=== PATIENT | female | born 1995 | race African-American/Black ===

== ENCOUNTER 2017-06-09 17:52 | Emergency (ER) | payer OTHER ==
[~2017-06-09] VITALS: Ht 175.3 cm; Wt 83.9 kg
[~2017-06-09 17:52] MED LIST: FLUC150T PO; HYDR-2758 PO; LEVO500T59 PO; ONDA4TAB10 SL; TAMS0.4C97 PO
[2017-06-09 18:30] VITALS: BP 163/72
[2017-06-09 18:55] LABS: BILIRUBIN,URINE NEGATIVE (NEG); GLUCOSE,URINE NEGATIVE (NEG); NITRITE,URINE NEGATIVE (NEG); PH,URINE 5.5; PROTEIN,URINE 30 mg/dL (NEG-TRACE); UROBILINOGEN,URINE 0.2 mg/dL (0.2 mg/dL)
--- NOTE | 2017-06-09 19:01 | PHYS DOC ---
Past Medical History Past Medical History: Kidney Stone Past Surgical History: Other Additional Past Surgical Histo: KIDNEY STONE REMOVAL WITH STENT PLACEMENT Alcohol Use: None Drug Use: None Adult General Chief Complaint Chief Complaint: ABDOMINAL PAIN HPI HPI Patient is a 21 year old female with history of kidney stones who presents today with bilateral pelvic pain that began 2 weeks ago and has been going on intermittently. Patient denies any urgency frequency or dysuria. Denies any chance she is . She states she has an Implanon. Denies any unusual vaginal discharge or STD concerns. Review of Systems Review of Systems Constitutional: Denies fever or chills [] Eyes: Denies change in visual acuity, redness, or eye pain [] HENT: Denies nasal congestion or sore throat [] Respiratory: Denies cough or shortness of breath [] Cardiovascular: No additional information not addressed in HPI [] GI: Pelvic pain : Denies dysuria or hematuria [] Musculoskeletal: Denies back pain or joint pain [] Integument: Denies rash or skin lesions [] Neurologic: Denies headache, focal weakness or sensory changes [] Endocrine: Denies polyuria or polydipsia [] Current Medications Current Medications Current Medications Medications (Trade) Dose Ordered Sig/Kannan Start Time Stop Time Status Last Admin Dose Admin Azithromycin (Zithromax) 1,000 mg 1X ONCE 06/09/17 19:15 06/09/17 19:16 DC 06/09/17 19:09 1,000 MG Ceftriaxone Sodium (Rocephin Im) 250 mg 1X ONCE 06/09/17 19:15 06/09/17 19:16 DC 06/09/17 19:08 250 MG Metronidazole (Flagyl) 2,000 mg 1X ONCE 06/09/17 19:15 06/09/17 19:16 DC 06/09/17 19:09 2,000 MG Allergies Allergies Allergies Coded Allergies Type Severity Reaction Last Updated Verified No Known Drug Allergies 05/11/16 No Physical Exam Physical Exam Constitutional: Well developed, well nourished, no acute distress, non-toxic appearance. [] HENT: Normocephalic, atraumatic, bilateral external ears normal, oropharynx moist, no oral exudates, nose normal. [] Eyes: PERRLA, EOMI, conjunctiva normal, no discharge. [] Neck: Normal range of motion, no tenderness, supple, no stridor. [] Cardiovascular:Heart rate regular rhythm, no murmur [] Lungs & Thorax: Bilateral breath sounds clear to auscultation [] Abdomen: Bowel sounds normal, soft, no tenderness, no masses, no pulsatile masses. [] Pelvic exam External pelvic appears normal, cervix is closed, moderate CMT and exam. No adnexal tenderness. Small amount of brownish discharge in the vaginal vault. Skin: Warm, dry, no erythema, no rash. [] Back: No tenderness, no CVA tenderness. [] Extremities: No tenderness, no cyanosis, no clubbing, ROM intact, no edema. [] Neurologic: Alert and oriented X 3, normal motor function, normal sensory function, no focal deficits noted. [] Psychologic: Affect normal, judgement normal, mood normal. [] Current Patient Data Vital Signs Vital Signs Date Time Temp Pulse Resp B/P (MAP) Pulse Ox O2 Delivery O2 Flow Rate FiO2 06/09/17 18:30 98.4 70 16 163/72 (102) 98 Room Air 98.4 Lab Values Laboratory Tests Test 06/09/17 17:56 06/09/17 18:47 POC Urine HCG, Qualitative Hcg negative (Negative) Urine Collection Type Unknown Urine Color Yellow Urine Clarity Cloudy Urine pH 5.5 Urine Specific [place] 1.015 Urine Protein 30 mg/dL (NEG-TRACE) Urine Glucose (UA) Negative mg/dL (NEG) Urine Ketones (Stick) Negative mg/dL (NEG) Urine Blood Negative (NEG) Urine Nitrite Negative (NEG) Urine Bilirubin Negative (NEG) Urine Urobilinogen Dipstick 0.2 mg/dL (0.2 mg/dL) Urine Leukocyte Esterase Negative (NEG) Urine RBC 0 /HPF (0-2) Urine WBC 1-4 /HPF (0-4) Urine Squamous Epithelial Cells Mod /LPF Urine Transitional Epithelial Cells Few /LPF Urine Bacteria 0 /HPF (0-FEW) Urine Mucus Marked /LPF Microbiology 06/09/17 Wet Prep - Final, Complete EKG EKG [] Radiology/Procedures Radiology/Procedures [] Course & Med Decision Making Course & Med Decision Making Pertinent Labs and Imaging studies reviewed. (See chart for details) Patient is in the ED with complaints of pelvic pain intermittently for 2 weeks. She did have moderate CMT and exam. She was treated for pelvic inflammatory disease with azithromycin Flagyl and Rocephin. Negative urine hCG, urine negative for UTI. Wet prep positive for BV. Discharged with Flagyl. Educated on safe sex practices especially the need to use protection. Discharged with Ultram for pain. Follow-up with [facility] in the next 7 days. Amelia Disclaimer Brennanon Disclaimer This electronic medical record was generated, in whole or in part, using a voice recognition dictation system. Departure Departure Impression: Primary Impression: Pelvic inflammatory disease Additional Impression: Bacterial vaginosis Disposition: HOME, SELF-CARE Condition: STABLE Referrals: NO PCP (PCP) FABIO LOU MD Please follow in one week Patient Instructions: Bacterial Vaginosis, Pelvic Inflammatory Disease, Easy-to -Read Additional Instructions: You were seen for lower abdominal pain with a physical exam consistent with pelvic inflammatory disease. We treated you for this condition. You also tested positive for bacterial vaginosis, complete your antibiotics. Do not drink on this medication. Use protection at all times during sex. Follow-up with the provided [facility] in 1-2 weeks. Scripts Metronidazole (FLAGYL) 500 Mg Tablet 1 TAB PO BID, #10 TAB Prov: RYDER GLYNN APRN 06/09/17 Problem Qualifiers RYDER GLYNN [employer] Jun 09, 2017 19:01
[2017-06-09 19:02] LABS: BACTERIA,URINE 0 /HPF (0-FEW); RBC,URINE 0 /HPF (0-2); SQUAMOUS EPITHELIAL CELL,UR MOD /LPF
[2017-06-09] MEDS ORDERED: metroNIDAZOLE 500 MG TABLET PO ONE (19:15)
[2017-06-09] MEDS ORDERED: cefTRIAXone IM 250 MG VIAL IM ONE (19:15)
[2017-06-09] MEDS ORDERED: AZITHROMYCIN 250 MG TABLET. PO ONE (19:15)
[2017-06-09] MEDS ORDERED: METR500T PO (19:30)
== END 2017-06-09 19:36 | disposition home or self-care (01) ==
LOC: ER 17:52
DX: N76.0 Acute vaginitis (principal); N73.9 Female pelvic inflammatory disease, unspecified; B96.89 Other specified bacterial agents as the cause of diseases classified elsewhere
CPT/HCPCS: 81001; 81025; 87491; 87591; 96372; 99284; J0696; Q0111; Q0144

== ENCOUNTER 2017-09-01 11:05 | Emergency (ER) | payer OTHER ==
[~2017-09-01] VITALS: Ht 175.3 cm; Wt 83.9 kg
[~2017-09-01 11:05] MED LIST changes: +METR500T PO
[2017-09-01 11:17] VITALS: BP 125/65
[2017-09-01 11:49] LABS: BILIRUBIN,URINE NEGATIVE (NEG); GLUCOSE,URINE NEGATIVE (NEG); NITRITE,URINE NEGATIVE (NEG); PH,URINE 6.5; PROTEIN,URINE NEGATIVE (NEG-TRACE); UROBILINOGEN,URINE 0.2 mg/dL (0.2 mg/dL)
--- NOTE | 2017-09-01 11:51 | PHYS DOC ---
Past Medical History Past Medical History: Kidney Stone Past Surgical History: Other Additional Past Surgical Histo: KIDNEY STONE REMOVAL WITH STENT PLACEMENT Alcohol Use: None Drug Use: None Adult General Chief Complaint Chief Complaint: SEXUALLY TRANSMITTED DISEASE [facility] HPI Patient is a 22 year old female presents to emergency department stating that she had the Norplant implant placed in December. She states that she had her last normal menstrual period in June. She states that she's had a few positive test as well as a few negative test. Patient also states that she's been having some white vaginal discharge. She's been having urinary frequency urgency and pain with urination. Dominant pain or discomfort. She denies any spotting. Review of Systems Review of Systems Constitutional: Denies fever or chills [] Eyes: Denies change in visual acuity, redness, or eye pain [] HENT: Denies nasal congestion or sore throat [] Respiratory: Denies cough or shortness of breath [] Cardiovascular: No additional information not addressed in HPI [] GI: Denies abdominal pain, nausea, vomiting, bloody stools or diarrhea [] : dysuria and vaginal discharge denies hematuria [] Musculoskeletal: Denies back pain or joint pain [] Integument: Denies rash or skin lesions [] Neurologic: Denies headache, focal weakness or sensory changes [] Endocrine: Denies polyuria or polydipsia [] Current Medications Current Medications Current Medications Medications (Trade) Dose Ordered Sig/Kannan Start Time Stop Time Status Last Admin Dose Admin Azithromycin (Zithromax) 1,000 mg 1X ONCE 09/01/17 12:30 09/01/17 12:31 DC 09/01/17 12:19 1,000 MG Ceftriaxone Sodium (Rocephin Im) 250 mg 1X ONCE 09/01/17 12:30 09/01/17 12:31 DC 09/01/17 12:19 250 MG Metronidazole (Flagyl) 2,000 mg 1X ONCE 09/01/17 12:30 09/01/17 12:31 DC 09/01/17 12:18 2,000 MG Allergies Allergies Allergies Coded Allergies Type Severity Reaction Last Updated Verified No Known Drug Allergies 05/11/16 No Physical Exam Physical Exam Constitutional: Well developed, well nourished, no acute distress, non-toxic appearance. [] HENT: Normocephalic, atraumatic, bilateral external ears normal, oropharynx moist, no oral exudates, nose normal. [] Eyes: PERRLA, EOMI, conjunctiva normal, no discharge. [] Neck: Normal range of motion, no tenderness, supple, no stridor. [] Cardiovascular:Heart rate regular rhythm, no murmur [] Lungs & Thorax: Bilateral breath sounds clear to auscultation [] Skin: Warm, dry, no erythema, no rash. [] Extremities: No tenderness, no cyanosis, no clubbing, ROM intact, no edema. [] Neurologic: Alert and oriented X 3, normal motor function, normal sensory function, no focal deficits noted. [] Psychologic: Affect normal, judgement normal, mood normal. [] Vaginal exam with MARISOL Chandler at bedside. Speculum exam: patient with white discharge noted. Manual exam: patient with no CMT with left adnexal tenderness Current Patient Data Vital Signs Vital Signs Date Time Temp Pulse Resp B/P (MAP) Pulse Ox O2 Delivery O2 Flow Rate FiO2 09/01/17 11:17 97.7 67 14 125/65 (85) 100 Room Air 97.7 Lab Values Laboratory Tests Test 09/01/17 11:15 09/01/17 11:38 09/01/17 12:15 Urine Collection Type Void Urine Color Yellow Urine Clarity Clear Urine pH 6.5 Urine Specific [place] <=1.005 Urine Protein Negative mg/dL (NEG-TRACE) Urine Glucose (UA) Negative mg/dL (NEG) Urine Ketones (Stick) Negative mg/dL (NEG) Urine Blood Negative (NEG) Urine Nitrite Negative (NEG) Urine Bilirubin Negative (NEG) Urine Urobilinogen Dipstick 0.2 mg/dL (0.2 mg/dL) Urine Leukocyte Esterase Small (NEG) Urine RBC Occ /HPF (0-2) Urine WBC 5-10 /HPF (0-4) Urine Squamous Epithelial Cells Many /LPF Urine Bacteria Moderate /HPF (0-FEW) POC Urine HCG, Qualitative Hcg negative (Negative) Maternal Serum HCG Beta Subunit 1 mIU/mL (0-5) Microbiology 09/01/17 Wet Prep - Final, Complete EKG EKG [] Radiology/Procedures Radiology/Procedures [] Course & Med Decision Making Course & Med Decision Making Pertinent Labs and Imaging studies reviewed. (See chart for details) Urinalysis was positive for small amount of leukocyte Estrace. Patient had many bacteria noted. She'll be treated with Macrobid. Wet prep was negative. Patient has chosen to be treated for sexually transmitted infections. She will receive Rocephin, Flagyl and Zithromax. Patient's test both urine and quantitative was negative. Patient will be discharged home in stable condition with recommendations to follow-up with a primary care physician in the next 7- 10 days. Patient agrees with discharge instructions, treatment regimens and follow-up recommendations. Recommended that she drink plenty of fluids such as water and cranberry juice. Recommended that she avoid cranberry juice cocktail, carbonated beverages, citrus fruits, alcohol, caffeine as these are considered irritants to the bladder. Patient agrees with discharge instructions treatment regimens and follow-up recommendations. All questions and concerns been answered at patient's bedside. [] Dragon Disclaimer Dragon Disclaimer This electronic medical record was generated, in whole or in part, using a voice recognition dictation system. Departure Departure Impression: Primary Impression: Urinary tract infection Additional Impression: Concern about sexually transmitted disease in female without diagnosis Disposition: 01 HOME, SELF-CARE Condition: STABLE Referrals: JEFFERSON REA MD (PCP) Patient Instructions: Sexually Transmitted Disease, Urinary Tract Infection, [id number] Additional Instructions: Activity as tolerated. Drink plenty of fluids such as water and cranberry juice. Avoid cranberry juice cocktail, carbonated beverages, citrus fruits, caffeine, alcohol as these are considered irritants to the bladder. Refrain from sexual intercourse for the next 2 weeks. You will be notified of your cultures an approximately 2-3 days. Follow-up the primary care physician in the next 7-10 days. Return back to emergency prior signs symptoms of become worse. Scripts Nitrofurantoin Monohyd/M-Cryst (MACROBID 100 MG CAPSULE) 100 Mg Capsule 1 CAP PO BID, #14 CAP Prov: TANMAY CAMARENA APRN 09/01/17 Problem Qualifiers Primary Impression: Urinary tract infection Urinary tract infection type: site unspecified Hematuria presence: without hematuria Qualified Codes: N39.0 - Urinary tract infection, site not specified TANMAY CAMARENA APRN Sep 01, 2017 11:51
[2017-09-01 11:55] LABS: SQUAMOUS EPITHELIAL CELL,UR MANY /LPF
[2017-09-01 11:56] LABS: RBC,URINE OCC /HPF (0-2)
[2017-09-01 11:57] LABS: BACTERIA,URINE MODERATE /HPF (0-FEW)
[2017-09-01] MEDS ORDERED: cefTRIAXone IM 250 MG VIAL IM ONE (12:30)
[2017-09-01] MEDS ORDERED: AZITHROMYCIN 250 MG TABLET. PO ONE (12:30)
[2017-09-01] MEDS ORDERED: metroNIDAZOLE 500 MG TABLET PO ONE (12:30)
[2017-09-01] MEDS ORDERED: NITR100C62 PO (13:01)
== END 2017-09-01 13:18 | disposition home or self-care (01) ==
LOC: ER 11:05
DX: N39.0 Urinary tract infection, site not specified (principal); Z20.2 Contact with and (suspected) exposure to infections with a predominantly sexual mode of transmission; Z87.442 Personal history of urinary calculi
CPT/HCPCS: 81001; 81025; 84702; 87086; 96372; 99284; J0696; Q0111; Q0144; 87491; 87591

== ENCOUNTER 2017-11-30 15:02 | Emergency (ER) | payer OTHER ==
[2017-11-30 16:49] LABS: URINE HCG POC HCG NEGATIVE (Negative)
[2017-11-30 16:50] LABS: BILIRUBIN,URINE NEGATIVE (NEG); CLARITY,URINE CLEAR; COLOR,URINE YELLOW; GLUCOSE,URINE NEGATIVE (NEG); NITRITE,URINE NEGATIVE (NEG); PH,URINE 6.5; PROTEIN,URINE NEGATIVE (NEG-TRACE); UROBILINOGEN,URINE 0.2 mg/dL (0.2 mg/dL)
[2017-11-30 17:12] LABS: BACTERIA,URINE FEW /HPF (0-FEW); RBC,URINE 0 /HPF (0-2); SQUAMOUS EPITHELIAL CELL,UR FEW /LPF; WBC,URINE OCC /HPF (0-4)
[2017-11-30] MEDS: MAGNESIUM CITRATE 296 ML SOLUTION. PO (18:23)
[2017-11-30] MEDS: metroNIDAZOLE 500 MG TABLET PO (18:24)
[2017-11-30] MEDS: cefTRIAXone IM 250 MG VIAL IM (18:24)
[2017-11-30] MEDS: AZITHROMYCIN 250 MG TABLET. PO (18:24)
[2017-12-03 19:16] LABS: CHLAMYDIA PROBE Negative (Negative); GC PROBE Negative (Negative)
== END 2017-11-30 18:20 | disposition home or self-care (01) ==
LOC: ER 15:02
DX: K59.00 Constipation, unspecified (principal)
CPT/HCPCS: 74018; 81001; 81025; 87491; 87591; 96372; 99285-25; J0696; Q0111; Q0144

== ENCOUNTER 2018-09-09 22:09 | Emergency (ER) | payer OTHER ==
[~2018-09-09] VITALS: Ht 175.3 cm; Wt 83.9 kg
[~2018-09-09 22:09] MED LIST changes: +NITR100C62 PO; +POLY17PO29 PO
[2018-09-09 22:30] VITALS: BP 138/65
== END 2018-09-09 23:41 | disposition left against medical advice (07) ==
LOC: ER 22:09
DX: R11.2 Nausea with vomiting, unspecified (principal); R19.7 Diarrhea, unspecified; R05 Cough
CPT/HCPCS: 99281

== ENCOUNTER 2020-07-17 08:42 | Emergency (ER) | payer MEDICAID, OTHER ==
[~2020-07-17] VITALS: Ht 175.3 cm; Wt 90.9 kg
[~2020-07-17 08:42] MED LIST changes: -HYDR-2758 PO; +HYDR-2761 PO
[2020-07-17 09:00] VITALS: BP 130/75
[2020-07-17] MEDS ORDERED: cefTRIAXone IM 250 MG VIAL IM ONE (09:30)
[2020-07-17] MEDS ORDERED: AZITHROMYCIN 250 MG TABLET. PO ONE (09:30)
[2020-07-17 10:41] LABS: BILIRUBIN,URINE NEGATIVE (NEG); CLARITY,URINE CLOUDY; COLOR,URINE YELLOW; NITRITE,URINE NEGATIVE (NEG); PH,URINE 8.5 (<5.0-8.0); PROTEIN,URINE NEGATIVE (NEG-TRACE)
[2020-07-17 11:06] LABS: AMORPHOUS SEDIMENT,UR PRESENT /HPF; BACTERIA,URINE 0 /HPF (0-FEW); RBC,URINE 0 /HPF (0-2); WBC,URINE 0 /HPF (0-4)
--- NOTE | 2020-07-17 11:20 | PHYS DOC ---
Past Medical History Past Medical History: No Pertinent History Additional Past Medical Histor: gestational diabetes only Past Surgical History: Other Additional Past Surgical Histo: KIDNEY STONE REMOVAL WITH STENT PLACEMENT Smoking Status: Never Smoker Alcohol Use: None Drug Use: None General Adult EDM: Chief Complaint: SEXUALLY TRANSMITTED DISEASE HPI: HPI: 25 yo F who denies any significant past medical history presents to the ED with complaints of increased, mucousy, vaginal discharge, requesting testing for STI and . History of treated chlamydia or gonorrhea " awhile back." Has no routine primary care physician. States her last menstrual period was approximately 5 weeks ago. Cannot recall the last time she had a Pap smear or was tested for blood-borne diseases. Only male sexual partners, no anal intercourse. Has not been vaccinated for HPV. Recent h/o unprotected a course with a male partner who is bisexual. ROS: Denies associated fever, chills, headache, neck stiffness, further, cough, chest pain, nausea, vomiting, diarrhea, dyspnea, leg swelling, rash, hemoptysis, vaginal bleeding, severe abdominal pain or low back pain, dyspareunia, dysuria, hematuria. Current Medications: Current Medications Medications (Trade) Dose Ordered Sig/Kannan Start Time Stop Time Status Last Admin Dose Admin Azithromycin (Zithromax) 1,000 mg 1X ONCE 07/17/20 09:30 07/17/20 09:32 DC 07/17/20 09:45 1,000 MG Ceftriaxone Sodium (Rocephin Im) 250 mg 1X ONCE 07/17/20 09:30 07/17/20 09:32 DC 07/17/20 09:44 250 MG Allergies: Allergies: Allergies Coded Allergies Type Severity Reaction Last Updated Verified No Known Drug Allergies 05/11/16 No Physical Exam: PE: Constitutional: Well developed, well nourished, no acute distress, non-toxic appearance. [] HENT: Normocephalic, atraumatic, Eyes: EOMI, conjunctiva normal, no discharge. [] Neck: Normal range of motion, no tenderness, supple, no stridor. [] Cardiovascular:Heart rate regular rhythm, no murmur [] Lungs & Thorax: Bilateral breath sounds clear to auscultation [] Abdomen: Bowel sounds normal, soft, no tenderness, no masses, no pulsatile mas ses. [] Skin: Warm, dry, no erythema, no rash. [] Back: No tenderness, no CVA tenderness. [] Extremities: No tenderness, no cyanosis, no clubbing, ROM intact, no edema. [] Neurologic: Alert and oriented X 3, normal motor function, normal sensory function, no focal deficits noted. [] Psychologic: Affect normal, judgement normal, mood normal. [] Pelvic: Chaperoned by RN, external genitalia normal, no rash, increased yellow thick discharge, cervical os closed and multiparous with no erythema, no vaginal bleeding, no CMT/adnexal ttp, tolerated exam well Current Patient Data: Labs: Laboratory Tests Test 07/17/20 09:10 07/17/20 09:57 Urine Collection Type Unknown Urine Color Yellow Urine Clarity Cloudy Urine pH 8.5 (<5.0-8.0) Urine Specific [place] 1.020 (1.000-1.030) Urine Protein Negative mg/dL (NEG-TRACE) Urine Glucose (UA) Negative mg/dL (NEG) Urine Ketones (Stick) Negative mg/dL (NEG) Urine Blood Negative (NEG) Urine Nitrite Negative (NEG) Urine Bilirubin Negative (NEG) Urine Urobilinogen Dipstick 1.0 mg/dL (0.2 mg/dL) Urine Leukocyte Esterase Negative (NEG) Urine RBC 0 /HPF (0-2) Urine WBC 0 /HPF (0-4) Urine Amorphous Sediment Present /HPF Urine Bacteria 0 /HPF (0-FEW) POC Urine HCG, Qualitative Hcg negative (Negative) Microbiology 07/17/20 Wet Prep - Final, Complete Vital Signs: Vital Signs Date Time Temp Pulse Resp B/P (MAP) Pulse Ox O2 Delivery O2 Flow Rate FiO2 07/17/20 09:00 98.1 86 18 130/75 (93) 100 98.1 EKG: EKG: [] Radiology/Procedures: Radiology/Procedures: [] Course & Med Decision Making: Course & Med Decision Making Pertinent Labs and Imaging studies reviewed. (See chart for details) Encounter for exposure to is unknown sexually transmitted disease. Patient was treated for chlamydia gonorrhea in the ED. Urinalysis shows no UTI. Will refer to primary care physician or local health department (RN gave this info to pt) testing of blood-borne diseases. I also encouraged Carticel vaccination. She with no signs or symptoms of PID, tolerated pelvic exam well. Strict ED return precautions given for severe abdominal pain. Encouraged urgent outpatient follow-up with PMD and health department. Life-threatening processes were con sidered but are low suspicion at this time, given history and physical exam. Pt was educated on all prescription medications and adverse effects. All patient's questions were answered and pt was stable at time of discharge. Differential includes aortic dissection, aortic aneurysm, acute coronary syndrome, surgical abdomen (appendicitis, cholecystitis, ischemic bowel, strangulated hernia, etc), bowel obstruction or volvulus, bladder outlet obstruction, gastrointestinal bleeding, inflammatory bowel disease, peptic ulcer disease, sepsis, diverticular disease, ureterolithiasis, nephrolithiasis, ovarian torsion, ectopic I spoken with the patient and her caregivers. I explained the patient's condition, diagnoses and treatment plan based on the information available to me at this time. I have answered the patient and her caregiver's questions and addressed any concerns. The patient and her caregivers have a good understanding of patient's diagnosis, condition and treatment plan as can be expected at this point. Vital signs have been stable. Patient's condition is stable and appropriate for discharge from the emergency department. Patient will pursue further outpatient evaluation with primary care physician or other designated or consulting physician as outlined in the discharge instructions. The patient and/or caregivers are agreeable to this plan of care and follow-up instructions have been explained in detail. The patient and/or caregivers have received these instructions in written form and have expressed an understanding of the discharge instructions. The patient and/or caregivers are aware that any significant change of condition or worsening of symptoms should prompt immediate return to this or the closest emergency department or call to 911. Amelia Disclaimer: Amelia Disclaimer: This electronic medical record was generated, in whole or in part, using a voice recognition dictation system. Departure Departure Impression: Primary Impression: Screening for STD (sexually transmitted disease) Disposition: HOME, SELF-CARE Condition: STABLE Referrals: NO PCP (PCP) Patient Instructions: Sexually Transmitted Disease Additional Instructions: Myra Santana MD Family Medicine Address: [address] [place] [address], [address] [address] Justicifation of Admission Dx: Justifications for Admission: Justification of Admission Dx: N/A GIA DOWLING DO Jul 17, 2020 11:20
[2020-07-20 01:08] LABS: GC PROBE Negative (Negative)
== END 2020-07-17 11:51 | disposition home or self-care (01) ==
LOC: ER 08:42
DX: N93.9 Abnormal uterine and vaginal bleeding, unspecified (principal); Z98.890 Other specified postprocedural states; Z87.442 Personal history of urinary calculi; Z20.2 Contact with and (suspected) exposure to infections with a predominantly sexual mode of transmission
CPT/HCPCS: 81001; 81025; 87491; 87591; 96372; 99284; J0696; Q0111

== ENCOUNTER 2020-08-12 01:02 | Emergency (ER) | payer MEDICAID ==
[~2020-08-12] VITALS: Ht 177.8 cm; Wt 86.0 kg
[2020-08-12 02:51] VITALS: BP 120/72
[2020-08-12 04:29] LABS: BILIRUBIN,URINE NEGATIVE (NEG); CLARITY,URINE CLEAR; COLOR,URINE YELLOW; NITRITE,URINE NEGATIVE (NEG); PH,URINE 6.5 (<5.0-8.0); PROTEIN,URINE NEGATIVE (NEG-TRACE)
[2020-08-12 04:48] LABS: BACTERIA,URINE MODERATE /HPF (0-FEW); RBC,URINE 0 /HPF (0-2); SQUAMOUS EPITHELIAL CELL,UR MOD /LPF
[2020-08-12] MEDS ORDERED: cefTRIAXone IM 250 MG VIAL IM ONE (05:00)
[2020-08-12] MEDS ORDERED: AZITHROMYCIN 250 MG TABLET. PO ONE (05:00)
--- NOTE | 2020-08-12 05:47 | PHYS DOC ---
Past Medical History Past Medical History: No Pertinent History Additional Past Medical Histor: gestational diabetes only Past Surgical History: Other Additional Past Surgical Histo: KIDNEY STONE REMOVAL WITH STENT PLACEMENT Smoking Status: Never Smoker Alcohol Use: None Drug Use: None General Adult EDM: Chief Complaint: SEXUALLY TRANSMITTED DISEASE HPI: HPI: Patient is a 25 year old [f__sex] who presents with [] Review of Systems: Review of Systems: Constitutional: Denies fever or chills. [] Eyes: Denies change in visual acuity. [] HENT: Denies nasal congestion or sore throat. [] Respiratory: Denies cough or shortness of breath. [] Cardiovascular: Denies chest pain or edema. [] GI: Denies abdominal pain, nausea, vomiting, bloody stools or diarrhea. [] : Denies dysuria. [] Musculoskeletal: Denies back pain or joint pain. [] Integument: Denies rash. [] Neurologic: Denies headache, focal weakness or sensory changes. [] Endocrine: Denies polyuria or polydipsia. [] Lymphatic: Denies swollen glands. [] Psychiatric: Denies depression or anxiety. [] Heart Score: Risk Factors: Risk Factors: DM, Current or recent (<one month) smoker, HTN, HLP, family history of CAD, obesity. Risk Scores: Score 0 - 3: 2.5% MACE over next 6 weeks - Discharge Home Score 4 - 6: 20.3% MACE over next 6 weeks - Admit for Clinical Observation Score 7 - 10: 72.7% MACE over next 6 weeks - Early Invasive Strategies Current Medications: Current Medications Medications (Trade) Dose Ordered Sig/Kannan Start Time Stop Time Status Last Admin Dose Admin Azithromycin (Zithromax) 1,000 mg 1X ONCE 08/12/20 05:00 08/12/20 05:01 DC 08/12/20 05:07 1,000 MG Ceftriaxone Sodium (Rocephin Im) 250 mg 1X ONCE 08/12/20 05:00 08/12/20 05:01 DC 08/12/20 05:09 250 MG Allergies: Allergies: Allergies Coded Allergies Type Severity Reaction Last Updated Verified No Known Drug Allergies 05/11/16 No Physical Exam: PE: Constitutional: Well developed, well nourished, no acute distress, non-toxic appearance. [] HENT: Normocephalic, atraumatic, bilateral external ears normal, oropharynx moist, no oral exudates, nose normal. [] Eyes: PERRLA, EOMI, conjunctiva normal, no discharge. [] Neck: Normal range of motion, no tenderness, supple, no stridor. [] Cardiovascular:Heart rate regular rhythm, no murmur [] Lungs & Thorax: Bilateral breath sounds clear to auscultation [] Abdomen: Bowel sounds normal, soft, no tenderness, no masses, no pulsatile masses. [] Skin: Warm, dry, no erythema, no rash. [] Back: No tenderness, no CVA tenderness. [] Extremities: No tenderness, no cyanosis, no clubbing, ROM intact, no edema. [] Neurologic: Alert and oriented X 3, normal motor function, normal sensory f unction, no focal deficits noted. [] Psychologic: Affect normal, judgement normal, mood normal. [] Current Patient Data: Labs: Laboratory Tests Test 08/12/20 01:19 08/12/20 01:28 Urine Collection Type Unknown Urine Color Yellow Urine Clarity Clear Urine pH 6.5 (<5.0-8.0) Urine Specific [place] 1.025 (1.000-1.030) Urine Protein Negative mg/dL (NEG-TRACE) Urine Glucose (UA) Negative mg/dL (NEG) Urine Ketones (Stick) Negative mg/dL (NEG) Urine Blood Negative (NEG) Urine Nitrite Negative (NEG) Urine Bilirubin Negative (NEG) Urine Urobilinogen Dipstick 1.0 mg/dL (0.2 mg/dL) Urine Leukocyte Esterase Negative (NEG) Urine RBC 0 /HPF (0-2) Urine WBC 1-4 /HPF (0-4) Urine Squamous Epithelial Cells Mod /LPF Urine Bacteria Moderate /HPF (0-FEW) Urine Mucus Mod /LPF POC Urine HCG, Qualitative Hcg negative (Negative) Microbiology 08/12/20 Wet Prep - Final, Complete Vital Signs: Vital Signs Date Time Temp Pulse Resp B/P (MAP) Pulse Ox O2 Delivery O2 Flow Rate FiO2 08/12/20 02:51 85 18 120/72 (88) 97 Room Air 08/12/20 01:55 97.9 97.9 EKG: EKG: [] Radiology/Procedures: Radiology/Procedures: [] Course & Med Decision Making: Course & Med Decision Making Pertinent Labs and Imaging studies reviewed. (See chart for details) Encouraged urgent outpatient follow-up with PMD. Life-threatening processes were considered but are low suspicion at this time, given history and physical exam. Pt was educated on all prescription medications and adverse effects. All patient's questions were answered and pt was stable at time of discharge. Differential includes aortic dissection, aortic aneurysm, acute coronary syn drome, surgical abdomen (appendicitis, cholecystitis, ischemic bowel, strangulated hernia, etc), bowel obstruction or volvulus, bladder outlet obstruction, gastrointestinal bleeding, inflammatory bowel disease, peptic ulcer disease, sepsis, diverticular disease, ureterolithiasis, nephrolithiasis, ovarian or testicular torsion, ectopic , vaginal hemorrhage of infection I spoken with the patient and her caregivers. I explained the patient's condition, diagnoses and treatment plan based on the information available to me at this time. I have answered the patient and her caregiver's questions and addressed any concerns. The patient and her caregivers have a good understanding of patient's diagnosis, condition and treatment plan as can be expected at this point. Vital signs have been stable. Patient's condition is stable and appropriate for discharge from the emergency department. Patient will pursue further outpatient evaluation with primary care physician or other designated or consulting physician as outlined in the discharge instructions. The patient and/or caregivers are agreeable to this plan of care and follow-up instructions have been explained in detail. The patient and/or caregivers have received these instructions in written form and have expressed an understanding of the discharge instructions. The patient and/or caregivers are aware that any significant change of condition or worsening of symptoms should prompt immediate return to this or the closest emergency department or call to 911. Amelia Disclaimer: Amelia Disclaimer: This electronic medical record was generated, in whole or in part, using a voice recognition dictation system. Departure Departure Impression: Primary Impression: Pelvic inflammatory disease Additional Impression: Vaginal discharge Disposition: HOME, SELF-CARE Condition: STABLE Referrals: NO PCP (PCP) Patient Instructions: Pelvic Inflammatory Disease, Safe Sex Additional Instructions: EMERGENCY DEPARTMENT GENERAL DISCHARGE INSTRUCTIONS Thank you for coming to [facility] Emergency Department (ED) today and trusting us with you care. We trust that you had a positive experience in our Emergency Department. If you wish to speak to the department management, you may call the Director at [phone]. YOUR FOLLOW UP INSTRUCTIONS ARE FOLLOWS: 1. Do you have a private Doctor? If you do not have a private doctor, please ask for a resource list of physicians or clinics that may be able to assist you with follow up care. 2. The Emergency Physicain has interpreted your x-rays. The X-Ray specialist will also review them. If there is a change in the findings, you will be notified in 48 hours when at all possible. 3. A lab test or culture has been done, your results will be reviewed and you will be notified if you need a change in treatment. ADDITIONAL INSTRUCTIONS AND INFORMATION: 1. Your care today has been supervised by a physician who is specially trained in emergency care. Many problems require more than one evaluation for a complete diagnosis and treatment. We recommend that you schedule your follow up appointment as recommended to ensure complete treatment of you illness or injury. If you are unable to obtain follow up care and continue to have a problem, or if your condition worsens, we recommend that you return to the ED. 2. We are not able to safely determine your condition over the phone nor are we able to give sound medical advice over the phone. For these safety reasons, if you call for medical advice we will ask you to come to the ED for further evaluation. 3. If you have any questions regarding these discharge instructions please call the ED at [phone]. SAFETY INFORMATION: In the interest of safety, wellness, and injury prevention; we encourage you to wear your sealbelt, if you smoke; quite smoking, and we encourage family to use a protective helmet for bicycling and other sporting events that present an increased risk for head injury. IF YOUR SYMPTOMS WORSEN OR NEW SYMPTOMS DEVELOP, OR YOU HAVE CONCERNS ABOUT YOUR CONDITION; OR IF YOUR CONDITION WORSENS WHILE YOU ARE WAITING FOR YOUR FOLLOW UP APPOINTMENT; EITHER CONTACT YOUR PRIMARY CARE DOCTOR, THE PHYSICIAN WHOSE NAME AND NUMBER YOU WERE GIVEN, OR RETURN TO THE ED IMMEDIATELY. Scripts Doxycycline Hyclate (DOXYCYCLINE HYCLATE) 100 Mg Tablet 1 TAB PO BID for 14 Days, #28 TAB Prov: GIA DOWLING DO 08/12/20 Justicifation of Admission Dx: Justifications for Admission: Justification of Admission Dx: N/A GIA DOWLING DO Aug 12, 2020 05:47
[2020-08-12] MEDS ORDERED: DOXY100T PO (06:04)
[2020-08-13 19:10] LABS: GC PROBE Negative (Negative)
== END 2020-08-12 06:17 | disposition home or self-care (01) ==
LOC: ER 01:02
DX: N73.9 Female pelvic inflammatory disease, unspecified (principal); N89.8 Other specified noninflammatory disorders of vagina
CPT/HCPCS: 81001; 81025; 87086; 87491; 87591; 96372; 99283; J0696; Q0111

== ENCOUNTER 2020-08-28 19:20 | Emergency (ER) | payer MEDICAID ==
[~2020-08-28] VITALS: Ht 177.8 cm; Wt 90.9 kg
[~2020-08-28 19:20] MED LIST changes: +DOXY100T PO
[2020-08-28 19:47] VITALS: BP 132/69
[2020-08-28 19:49] LABS: BILIRUBIN,URINE NEGATIVE (NEG); CLARITY,URINE CLEAR; COLOR,URINE YELLOW; NITRITE,URINE NEGATIVE (NEG); PROTEIN,URINE NEGATIVE (NEG-TRACE); UROBILINOGEN,URINE 0.2 mg/dL (0.2 mg/dL)
[2020-08-28 20:01] LABS: BACTERIA,URINE FEW /HPF (0-FEW); RBC,URINE OCC /HPF (0-2)
--- NOTE | 2020-08-28 20:07 | PHYS DOC ---
Past Medical History Past Medical History: No Pertinent History Additional Past Medical Histor: gestational diabetes only (TANMAY SENIOR PRINT TRAFFIC MANAGER) Past Surgical History: Other Additional Past Surgical Histo: KIDNEY STONE REMOVAL WITH STENT PLACEMENT (TANMAY SENIOR PRINT TRAFFIC MANAGER) Smoking Status: Never Smoker Alcohol Use: None Drug Use: None (TANMAY SENIOR PRINT TRAFFIC MANAGER) General Adult EDM: Chief Complaint: SEXUALLY TRANSMITTED DISEASE HPI: HPI: Patient is a 25 year old female who presents with 1 week of vaginal discharge, vaginal irritation and foul odor. She states is the same odor as she had when she had chlamydia. States she would like to be treated for sexually transmitted diseases today. Patient denies abdominal pain, nausea, vomiting, fever, back pain, dysuria symptoms, chest pain, shortness of air, headache, dizziness. Patient has a history of gestational diabetes and a kidney stone. (TANMAY SENIOR PRINT TRAFFIC MANAGER) Review of Systems: Review of Systems: Constitutional: Denies fever or chills. [] Eyes: Denies change in visual acuity. [] HENT: Denies nasal congestion or sore throat. [] Respiratory: Denies cough or shortness of breath. [] Cardiovascular: Denies chest pain or edema. [] GI: Denies abdominal pain, nausea, vomiting, bloody stools or diarrhea. [] : Denies dysuria. Vaginal discharge. Vaginal irritation. [] Musculoskeletal: Denies back pain or joint pain. [] Integument: Denies rash. [] Neurologic: Denies headache, focal weakness or sensory changes. [] Endocrine: Denies polyuria or polydipsia. [] Lymphatic: Denies swollen glands. [] Psychiatric: Denies depression or anxiety. [] (TANMAY SENIOR PRINT TRAFFIC MANAGER) Heart Score: Risk Factors: Risk Factors: DM, Current or recent (<one month) smoker, HTN, HLP, family history of CAD, obesity. Risk Scores: Score 0 - 3: 2.5% MACE over next 6 weeks - Discharge Home Score 4 - 6: 20.3% MACE over next 6 weeks - Admit for Clinical Observation Score 7 - 10: 72.7% MACE over next 6 weeks - Early Invasive Strategies (TANMAY SENIOR PRINT TRAFFIC MANAGER) Allergies: Allergies: Allergies Coded Allergies Type Severity Reaction Last Updated Verified No Known Drug Allergies 05/11/16 No [facility] Physical Exam: PE: Constitutional: Well developed, well nourished, no acute distress, non-toxic appearance. [] HENT: Normocephalic, atraumatic, bilateral external ears normal, oropharynx moist, no oral exudates, nose normal. [] Eyes: PERRLA, EOMI, conjunctiva normal, no discharge. [] Neck: Normal range of motion, no tenderness, supple, no stridor. [] Cardiovascular:Heart rate regular rhythm, no murmur [] Lungs & Thorax: Bilateral breath sounds clear to auscultation [] Abdomen: Bowel sounds normal, soft, no tenderness, no masses, no pulsatile masses. [] Skin: Warm, dry, no erythema, no rash. [] Back: No tenderness, no CVA tenderness. [] Extremities: No tenderness, no cyanosis, no clubbing, ROM intact, no edema. [] Neurologic: Alert and oriented X 3, normal motor function, normal sensory function, no focal deficits noted. [] Psychologic: Affect normal, judgement normal, mood normal. Normal physical exam [] ([facility] Current Patient Data: Labs: Laboratory Tests Test 08/28/20 19:26 08/28/20 19:48 Urine Collection Type Unknown Urine Color Yellow Urine Clarity Clear Urine pH 6.0 (<5.0-8.0) Urine Specific [place] 1.025 (1.000-1.030) Urine Protein Negative mg/dL (NEG-TRACE) Urine Glucose (UA) Negative mg/dL (NEG) Urine Ketones (Stick) 15 mg/dL (NEG) Urine Blood Negative (NEG) Urine Nitrite Negative (NEG) Urine Bilirubin Negative (NEG) Urine Urobilinogen Dipstick 0.2 mg/dL (0.2 mg/dL) Urine Leukocyte Esterase Negative (NEG) Urine RBC Occ /HPF (0-2) Urine WBC 1-4 /HPF (0-4) Urine Squamous Epithelial Cells Few /LPF Urine Bacteria Few /HPF (0-FEW) Urine Mucus Mod /LPF POC Urine HCG, Qualitative Hcg negative (Negative) Vital Signs: Vital Signs Date Time Temp Pulse Resp B/P (MAP) Pulse Ox O2 Delivery O2 Flow Rate FiO2 10/10/20 19:47 98.7 83 20 132/69 (90) 98 Room Air 98.7 (TANMAY SENIOR APRN) EKG: EKG: [] (TANMAY SENIOR APRN) Radiology/Procedures: Radiology/Procedures: [] (TANMAY SENIOR APRN) Course & Med Decision Making: Course & Med Decision Making Pertinent Labs and Imaging studies reviewed. (See chart for details) See HPI. Alert and oriented x4. Speaks full sentences. Ambulatory with steady gait. Abdomen is soft and nontender. Pelvic Exam: Industrial Sales Manager present Abdomen: Nontender External Genitalia: Normal Skin Speculum: Normal vaginal mucosa, odorous yellow/ white cervical discharge Bimanual: No adnexal masses or tenderness, No CMT She is treated with Rocephin and azithromycin today in the ED. She is educated that she will be called in 48 hours only if her chlamydia or gonorrhea comes back positive. Wet prep shows no acute findings. [] (TANMAY SENIOR APRN) Dragon Disclaimer: Dragon Disclaimer: This electronic medical record was generated, in whole or in part, using a voice recognition dictation system. (TANMAY SENIOR APRN) Departure Departure Impression: Primary Impression: Concern about sexually transmitted disease in female withoutdiagnosis Disposition: 01 DC HOME SELF CARE/HOMELESS Condition: STABLE Referrals: NO PCP (PCP) KEY AGUILAR Jr, MD Patient Instructions: Sexually Transmitted Disease Additional Instructions: Follow-up with a head start assistant teacher if needed. Drink plenty of fluids. Refrain from sex for the next 10 days. Alert all partners that you had to be treated for sexually transmitted disease. You will be called in 48 hours only if the chlamydia or gonorrhea come back positive. Attending Signature Attending Signature I have reviewed the PA/ESTATE AND TRUST TAX PRINCIPAL's note and plan of care. I was available for consultation as needed during the patient's visit in the emergency department. I agree with the clinical impression, plan, and disposition. (FLOWER JACKSON DO) TANMAY SENIOR APRN Aug 28, 2020 20:07 FLOWER JACKSON DO Aug 28, 2020 23:08
[2020-08-28] MEDS ORDERED: ONDANSETRON ODT 4 MG TAB.RAPDIS. PO ONE (20:15)
[2020-08-28] MEDS ORDERED: AZITHROMYCIN 250 MG TABLET. PO ONE (20:15)
[2020-08-28] MEDS ORDERED: cefTRIAXone IM 250 MG VIAL IM ONE (20:15)
[2020-08-30 22:08] LABS: GC PROBE Negative (Negative)
== END 2020-08-28 20:59 | disposition home or self-care (01) ==
LOC: ER 19:20
DX: N89.8 Other specified noninflammatory disorders of vagina (principal); Z20.2 Contact with and (suspected) exposure to infections with a predominantly sexual mode of transmission; Z98.890 Other specified postprocedural states
CPT/HCPCS: 81001; 81025; 87491; 87591; 96372; 99284; J0696; Q0111

== ENCOUNTER 2020-12-23 23:24 | Emergency (ER) | payer MEDICAID ==
[~2020-12-23] VITALS: Ht 175.3 cm; Wt 88.6 kg
[2020-12-23 23:41] LABS: BILIRUBIN,URINE NEGATIVE (NEG); CLARITY,URINE CLOUDY; COLOR,URINE YELLOW; NITRITE,URINE NEGATIVE (NEG); PROTEIN,URINE NEGATIVE (NEG-TRACE); UROBILINOGEN,URINE 0.2 mg/dL (0.2 mg/dL)
[2020-12-23 23:56] LABS: AMORPHOUS SEDIMENT,UR PRESENT /HPF; BACTERIA,URINE FEW /HPF (0-FEW); RBC,URINE 0 /HPF (0-2); WBC,URINE OCC /HPF (0-4)
[2020-12-24 00:12] LABS: BASO % 1 % (0-3); EOS # 0.1 x10^3/uL (0.0-0.7); EOS % 3 % (0-3); HEMATOCRIT 35.1 % (36.0-47.0); HEMOGLOBIN 11.9 g/dL (12.0-15.5); LYMPH # 1.8 x10^3/uL (1.0-4.8); LYMPH % 41 % (24-48); MEAN CORPUSCULAR HEMOGLOBIN 33 pg (25-35); MEAN CORPUSCULAR HGB CONC 34 g/dL (31-37); MEAN CORPUSCULAR VOLUME 97 fL (79-100); MONO # 0.3 x10^3/uL (0.0-1.1); MONO % 7 % (0-9); NEUT # 2.1 x10^3/uL (1.8-7.7); NEUT % 48 % (31-73); PLATELET COUNT 220 x10^3/uL (140-400); RED BLOOD COUNT 3.64 x10^6/uL (3.50-5.40); RED CELL DISTRIBUTION WIDTH 12.7 % (11.5-14.5); WHITE BLOOD COUNT 4.3 x10^3/uL (4.0-11.0)
[2020-12-24 00:30] LABS: CALCIUM 8.7 mg/dL (8.5-10.1); CREATININE 0.9 mg/dL (0.6-1.0); GFR 93.9; POTASSIUM 3.8 mmol/L (3.5-5.1)
[2020-12-24 00:36] LABS: ALBUMIN 3.1 g/dL (3.4-5.0); TOTAL BILIRUBIN 0.3 mg/dL (0.2-1.0); TOTAL PROTEIN 6.2 g/dL (6.4-8.2)
--- NOTE | 2020-12-24 00:36 | RAD ---
CT abdomen and pelvis without contrast PQRS statement: CT scans at this facility use dose reduction including either automated exposure cont rol, iterative reconstructions, and /or weight based radiation dosing via mA and kV modification when appropriate to reduce radiation dose to as low as reasonably achievable. HISTORY: Abdominal pain. Kidney stone. Abdomen findings: Lung bases and bones are unremarkable. Liver, gallbladder, spleen, pancreas, adrena l glands and kidneys are unremarkable. No urinary calculi, hydronephrosis or perinephric edema. No ob struction or inflammation the GI tract. No abdominal fluid. 1 cm fatty umbilical abdominal wall herni a. Pelvis findings: Retroverted uterus. Left ovary is asymmetrically larger with subtle hypodensity coul d indicate an underlying follicle or cyst diameter approximately 2 cm density 27 units solid lesion a re not excluded based on its density. Right ovary, bladder, rectum and bones are unremarkable. No alan dder calculi. No pelvic fluid. IMPRESSION: 1. Acute process in the abdomen. Appendix is negative. No urinary calculi or hydronephrosis. 2. Indistinct 2 cm hypodensity of the left ovary, internal density of 27 units, could indicate an und erlying follicle, cyst or mass. This could be further assessed with pelvic sonography. Electronically signed by: Severiano Antonio MD (12/24/2020 12:34 AM) [facility]
--- NOTE | 2020-12-24 00:38 | ED.ADGEN ---
Past Medical History Past Medical History: Other Additional Past Medical Histor: gestational diabetes, CERVICAL CYST, KIDNEY STONES Past Surgical History: Other Additional Past Surgical Histo: KIDNEY STONE REMOVAL WITH STENT PLACEMENT Smoking Status: Never Smoker Alcohol Use: None Drug Use: None General Adult EDM: Chief Complaint: ABDOMINAL PAIN HPI: HPI: Patient is 25-year-old female presents to the emergency room complaining of intermittent abdominal pain for the last 6 weeks. She states that it is worse when she eats. She gets this crampy feeling around her bellybutton that then radiates throughout her abdomen. She states it lasts for about 7 minutes and then recurs throughout the day. She denies any nausea, vomiting, diarrhea, constipation, urinary symptoms, vaginal discharge, pelvic pain. She does state that she has some vaginal odor. She is not sure whether or not she could have a sexually transmitted disease. She does not be checked today. When asked if she has ever had this pain before she states it feels similar to when she had a kidney stone and when she had PID. She denies any kind of fevers. She is concerned that this may be an ulcer as her uncle from an ulcer. She has not tried anything for the pain. Review of Systems: Review of Systems: Complete ROS is negative unless otherwise documented in HPI Current Medications: Current Medications Medications (Trade) Dose Ordered Sig/Kannan Start Time Stop Time Status Last Admin Dose Admin Ceftriaxone Sodium (Rocephin Im) 500 mg 1X ONCE 12/24/20 01:15 12/24/20 01:16 DC 12/24/20 01:23 500 MG Allergies: Allergies: Allergies Coded Allergies Type Severity Reaction Last Updated Verified No Known Drug Allergies 05/11/16 No Physical Exam: PE: General: Awake, alert, NAD. Well Nourished, well hydrated. Cooperative HEENT: Atraumatic, EOMI, PERRL, airway patent, moist oral mucosa Neck: Supple, trachea midline Respiratory: CTA bilaterally, normal effort, no wheezing/crackles CV: RRR, no murmur, cap refill <2 GI: Soft, nondistended, nontender, no masses : External exam within normal limits, cervix is closed, minimal discharge noted, no cervical motion tenderness, no adnexal tenderness MSK: No obvious deformities Skin: Warm, dry, intact Neuro: A&O x3, speech NL, sensory and motor grossly intact, no focal deficits Psych: Normal affect, normal mood, not suicidal or homicidal Current Patient Data: Labs: Laboratory Tests Test 12/23/20 23:30 12/23/20 23:37 12/24/20 00:03 Urine Collection Type Unknown Urine Color Yellow Urine Clarity Cloudy Urine pH 8.0 (<5.0-8.0) Urine Specific [place] 1.015 (1.000-1.030) Urine Protein Negative mg/dL (NEG-TRACE) Urine Glucose (UA) Negative mg/dL (NEG) Urine Ketones (Stick) Negative mg/dL (NEG) Urine Blood Negative (NEG) Urine Nitrite Negative (NEG) Urine Bilirubin Negative (NEG) Urine Urobilinogen Dipstick 0.2 mg/dL (0.2 mg/dL) Urine Leukocyte Esterase Negative (NEG) Urine RBC 0 /HPF (0-2) Urine WBC Occ /HPF (0-4) Urine Squamous Epithelial Cells Mod /LPF Urine Amorphous Sediment Present /HPF Urine Bacteria Few /HPF (0-FEW) Urine Mucus Slight /LPF POC Urine HCG, Qualitative Hcg negative (Negative) White Blood Count 4.3 x10^3/uL (4.0-11.0) Red Blood Count 3.64 x10^6/uL (3.50-5.40) Hemoglobin 11.9 g/dL (12.0-15.5) L Hematocrit 35.1 % (36.0-47.0) L Mean Corpuscular Volume 97 fL (79-100) Mean Corpuscular Hemoglobin 33 pg (25-35) Mean Corpuscular Hemoglobin Concent 34 g/dL (31-37) Red Cell Distribution Width 12.7 % (11.5-14.5) Platelet Count 220 x10^3/uL (140-400) Neutrophils (%) (Auto) 48 % (31-73) Lymphocytes (%) (Auto) 41 % (24-48) Monocytes (%) (Auto) 7 % (0-9) Eosinophils (%) (Auto) 3 % (0-3) Basophils (%) (Auto) 1 % (0-3) Neutrophils # (Auto) 2.1 x10^3/uL (1.8-7.7) Lymphocytes # (Auto) 1.8 x10^3/uL (1.0-4.8) Monocytes # (Auto) 0.3 x10^3/uL (0.0-1.1) Eosinophils # (Auto) 0.1 x10^3/uL (0.0-0.7) Basophils # (Auto) 0.0 x10^3/uL (0.0-0.2) Sodium Level 139 mmol/L (136-145) Potassium Level 3.8 mmol/L (3.5-5.1) Chloride Level 107 mmol/L (98-107) Carbon Dioxide Level 25 mmol/L (21-32) Anion Gap 7 (6-14) Blood Urea Nitrogen 10 mg/dL (7-20) Creatinine 0.9 mg/dL (0.6-1.0) Estimated GFR (Cockcroft-Gault) 93.9 BUN/Creatinine Ratio 11 (6-20) Glucose Level 88 mg/dL (70-99) Calcium Level 8.7 mg/dL (8.5-10.1) Total Bilirubin 0.3 mg/dL (0.2-1.0) Aspartate Amino Transferase (AST) 12 U/L (15-37) L Alanine Aminotransferase (ALT) 28 U/L (14-59) Alkaline Phosphatase 36 U/L (46-116) L Total Protein 6.2 g/dL (6.4-8.2) L Albumin 3.1 g/dL (3.4-5.0) L Albumin/Globulin Ratio 1.0 (1.0-1.7) Lipase 93 U/L (73-393) Laboratory Tests 12/24/20 00:03 Laboratory Tests 12/24/20 00:03 Microbiology 12/24/20 Wet Prep - Final, Complete Vital Signs: Vital Signs Date Time Temp Pulse Resp B/P (MAP) Pulse Ox O2 Delivery O2 Flow Rate FiO2 12/23/20 23:30 98.6 89 18 112/64 (80) 100 Room Air 98.6 EKG: EKG: [] Heart Score: Risk Factors: Risk Factors: DM, Current or recent (<one month) smoker, HTN, HLP, family history of CAD, obesity. Risk Scores: Score 0 - 3: 2.5% MACE over next 6 weeks - Discharge Home Score 4 - 6: 20.3% MACE over next 6 weeks - Admit for Clinical Observation Score 7 - 10: 72.7% MACE over next 6 weeks - Early Invasive Strategies Radiology/Procedures: Radiology/Procedures: [] Course & Med Decision Making: Course & Med Decision Making Pertinent Labs and Imaging studies reviewed. (See chart for details) Patient is a 25-year-old female presents to the emergency room complaining intermittent abdominal pain. Patient states it feels similar to when she had PID and when she had a kidney stone. Abdominal labs, CT abdomen pelvis without contrast, and pelvic exam were done here in the emergency room. Patient will be treated empirically for STDs. On pelvic exam patient did not have any cervical motion tenderness. She did not have any right or left adnexal tenderness. At this time there is no concern for PID or TOA. She has not had any of any kind of fever. Patient will be started on Nexium for possible reflux. She will be given Rocephin here in the emergency room to be treated empirically for STDs. She will be placed on doxycycline to treat empirically for STDs. She will also be placed on Flagyl for BV. Patient's test results and vitals while in the ED were fully reviewed and discussed with the patient. Patient is stable and at this time does not need admission to the hospital. We have discussed strict return precautions and the importance of following up with their Primary Care Physician. Patient stated understanding and was given an opportunity to ask any questions. Patient is in agreement with plan. Amelia Disclaimer: Amelia Disclaimer: This electronic medical record was generated, in whole or in part, using a voice recognition dictation system. Departure Departure Impression: Primary Impression: Abdominal pain Additional Impressions: Bacterial vaginosis Concern about sexually transmitted disease in female withoutdiagnosis Disposition: 01 SD HOME SELF CARE/HOMELESS Condition: STABLE Referrals: NO PCP (PCP) Patient Instructions: Bacterial Vaginosis, Peptic Ulcer Disease, Sexually Transmitted Disease Scripts Esomeprazole Magnesium (NEXIUM CAPSULE) 20 Mg Capsule. 1 CAP PO DAILY, #14 CAP 0 Refills Prov: ELIESER SANCHEZ MD 12/24/20 Metronidazole (FLAGYL) 500 Mg Tablet 1 TAB PO BID, #14 TAB Prov: ELIESER SANCHEZ MD 12/24/20 Doxycycline Hyclate (DOXYCYCLINE HYCLATE) 100 Mg Capsule 1 CAP PO BID, #14 CAP Prov: ELIESER SANCHEZ MD 12/24/20 Problem Qualifiers ELIESER SANCHEZ MD Dec 24, 2020 00:38
[2020-12-24] MEDS: cefTRIAXone IM 500 MG VIAL. IM ONE (01:23)
[2020-12-24 01:38] VITALS: BP 112/66
[2020-12-24] MEDS ORDERED: ESOM20CA PO (01:50)
[2020-12-24] MEDS ORDERED: DOXY100C2 PO (01:50)
[2020-12-24] MEDS ORDERED: METR500T PO (01:50)
== END 2020-12-24 02:07 | disposition home or self-care (01) ==
LOC: ER 23:24
DX: N76.0 Acute vaginitis (principal); B96.89 Other specified bacterial agents as the cause of diseases classified elsewhere; Z20.2 Contact with and (suspected) exposure to infections with a predominantly sexual mode of transmission; Z95.5 Presence of coronary angioplasty implant and graft
CPT/HCPCS: 74176; 80053; 81001; 81025; 83690; 85025; 87491; 87591; 96372; 99285; J0696; Q0111

== ENCOUNTER 2021-04-14 11:34 | Emergency (ER) | payer MEDICAID ==
[~2021-04-14] VITALS: Ht 175.3 cm; Wt 87.1 kg
[~2021-04-14 11:34] MED LIST changes: +DOXY100C2 PO; +ESOM20CA PO
[2021-04-14 12:28] LABS: BILIRUBIN,URINE NEGATIVE (NEG); CLARITY,URINE CLEAR; COLOR,URINE YELLOW; NITRITE,URINE NEGATIVE (NEG); PH,URINE 6.5 (<5.0-8.0); PROTEIN,URINE NEGATIVE (NEG-TRACE); UROBILINOGEN,URINE 0.2 mg/dL (0.2 mg/dL)
[2021-04-14 12:34] LABS: BACTERIA,URINE FEW /HPF (0-FEW)
[2021-04-14] MEDS ORDERED: cefTRIAXone IM 500 MG VIAL. IM ONE (12:45)
[2021-04-14] MEDS ORDERED: DOXYCYCLINE HYCLATE 100 MG TABLET PO ONE (12:45)
[2021-04-14] MEDS ORDERED: metroNIDAZOLE 500 MG TABLET PO ONE (12:45)
[2021-04-14] MEDS ORDERED: FLUCONAZOLE 100 MG TABLET. PO ONE (12:45)
[2021-04-14] MEDS ORDERED: FLUC150T PO (13:19)
[2021-04-14] MEDS ORDERED: DOXY100T PO (13:19)
--- NOTE | 2021-04-14 13:19 | PHYS DOC ---
Past Medical History Past Medical History: Other Additional Past Medical Histor: gestational diabetes, CERVICAL CYST, KIDNEY STONES Past Surgical History: Other Additional Past Surgical Histo: KIDNEY STONE REMOVAL WITH STENT PLACEMENT Smoking Status: Never Smoker Alcohol Use: None Drug Use: None General Adult EDM: Chief Complaint: SEXUALLY TRANSMITTED DISEASE HPI: HPI: Patient is a 25 year old female presenting to the ED today complaining of vaginal discharge for 2 weeks. Patient is also complaining of lower abdominal pain, she states this is very common for her when she has BV. Patient is refusing to be tested because she came to the ED with the son and is concerned it will be hard to protect the son from seeing the pelvic exam. She states she would like to be treated for STDs. She states she has had unprotected sex and does not know what the proximal has Review of Systems: Review of Systems: Constitutional: Denies fever or chills. [] GI: Reports lower abdominal pain, vaginal discharge, denies nausea, vomiting, bloody stools or diarrhea. [] : Denies dysuria. [] Musculoskeletal: Denies back pain or joint pain. [] Integument: Denies rash. [] Neurologic: Denies headache, focal weakness or sensory changes. [] Psychiatric: Denies depression or anxiety. [] Heart Score: C/O Chest Pain: N/A Risk Factors: Risk Factors: DM, Current or recent (<one month) smoker, HTN, HLP, family history of CAD, obesity. Risk Scores: Score 0 - 3: 2.5% MACE over next 6 weeks - Discharge Home Score 4 - 6: 20.3% MACE over next 6 weeks - Admit for Clinical Observation Score 7 - 10: 72.7% MACE over next 6 weeks - Early Invasive Strategies Current Medications: Current Medications Medications (Trade) Dose Ordered Sig/Kannan Start Time Stop Time Status Last Admin Dose Admin Ceftriaxone Sodium (Rocephin Im) 500 mg 1X ONCE 04/14/21 12:45 04/14/21 12:48 DC Doxycycline Hyclate (Vibra-Tab) 100 mg 1X ONCE 04/14/21 12:45 04/14/21 12:48 DC Fluconazole (Diflucan) 150 mg 1X ONCE 04/14/21 12:45 04/14/21 12:48 DC Metronidazole (Flagyl) 2,000 mg 1X ONCE 04/14/21 12:45 04/14/21 12:48 DC Allergies: Allergies: Allergies Coded Allergies Type Severity Reaction Last Updated Verified No Known Drug Allergies 05/11/16 No Physical Exam: PE: Constitutional: Well developed, well nourished, no acute distress, non-toxic appearance. [] Abdomen: Bowel sounds normal, soft, no tenderness, no masses, no pulsatile masses. [] pelvic exam -deferred by patient Skin: Warm, dry, no erythema, no rash. [] Back: No tenderness, no CVA tenderness. [] Extremities: No tenderness, no cyanosis, no clubbing, ROM intact, no edema. [] Neurologic: Alert and oriented X 3, normal motor function, normal sensory function, no focal deficits noted. [] Psychologic: Affect normal, judgement normal, mood normal. [] Current Patient Data: Labs: Laboratory Tests Test 04/14/21 11:40 04/14/21 11:52 Urine Collection Type Unknown Urine Color Yellow Urine Clarity Clear Urine pH 6.5 (<5.0-8.0) Urine Specific [place] 1.025 (1.000-1.030) Urine Protein Negative mg/dL (NEG-TRACE) Urine Glucose (UA) Negative mg/dL (NEG) Urine Ketones (Stick) Negative mg/dL (NEG) Urine Blood Negative (NEG) Urine Nitrite Negative (NEG) Urine Bilirubin Negative (NEG) Urine Urobilinogen Dipstick 0.2 mg/dL (0.2 mg/dL) Urine Leukocyte Esterase Negative (NEG) Urine RBC 1-2 /HPF (0-2) Urine WBC 1-4 /HPF (0-4) Urine Squamous Epithelial Cells Many /LPF Urine Bacteria Few /HPF (0-FEW) Urine Mucus Marked /LPF POC Urine HCG, Qualitative Hcg negative (Negative) Vital Signs: Vital Signs Date Time Temp Pulse Resp B/P (MAP) Pulse Ox O2 Delivery O2 Flow Rate FiO2 04/14/21 12:03 98.0 74 17 119/52 (74) 100 Room Air 98.0 EKG: EKG: [] Radiology/Procedures: Radiology/Procedures: [] Course & Med Decision Making: Course & Med Decision Making Pertinent Labs and Imaging studies reviewed. (See chart for details) This is a 25-year-old female patient in the ED concerned she could have an STD. She has had vaginal discharge and pelvic pain. Patient refusing pelvic exam. Was treated for STDs. Education provided Amelia Disclaimer: Amelia Disclaimer: This electronic medical record was generated, in whole or in part, using a voice recognition dictation system. Departure Departure Impression: Primary Impression: Concern about sexually transmitted disease in female withoutdiagnosis Disposition: HOME / SELF CARE / HOMELESS Condition: STABLE Referrals: NO PCP (PCP) Follow up with the health department Patient Instructions: Sexually Transmitted Disease, [id number] Additional Instructions: Please take the prescribed medications as ordered. Please follow-up with the health department for further concerns about STDs. Do not have sex for 2 weeks. Use protection after bath. Ensure you let all your partners know you were treated for STDs and have them seek treatment Scripts Fluconazole (DIFLUCAN) 150 Mg Tablet 1 TAB PO ONCE, #1 TAB Please take in 7 days Prov: RYDER GLYNN APRN 04/14/21 Doxycycline Hyclate (DOXYCYCLINE HYCLATE) 100 Mg Tablet 1 TAB PO BID, #14 TAB Prov: RYDER GLYNN APRN 04/14/21 RYDER GLYNN APRN April 14, 2021 13:19
[2021-04-14] MEDS ORDERED: ONDANSETRON ODT 4 MG TAB.RAPDIS. ONE (13:55)
[2021-04-14 14:00] VITALS: BP 109/55
[2021-04-14] MEDS ORDERED: ONDANSETRON ODT 4 MG TAB.RAPDIS. PO ONE (14:00)
== END 2021-04-14 14:28 | disposition home or self-care (01) ==
LOC: ER 12:05
DX: Z20.2 Contact with and (suspected) exposure to infections with a predominantly sexual mode of transmission (principal); Z87.442 Personal history of urinary calculi
CPT/HCPCS: 81001; 81025; 87491; 87591; 96372; 99284; J0696

== ENCOUNTER 2021-11-30 08:34 | Emergency (ER) | payer SELFPAY ==
[~2021-11-30] VITALS: Ht 177.8 cm; Wt 90.9 kg
[~2021-11-30 08:34] MED LIST changes: -DOXY100C2 PO; +DOXY100C3 PO
--- NOTE | 2021-11-30 08:35 | NUR ---
Pt's oxygen saturation checked at the request of Sparkle Mccloud RN. Pt's reading on the portable pulse ox is 98% on room air and pulse is 113. Dr. Michael and Sparkle Mccloud RN notified.
[2021-11-30 09:16] VITALS: BP 109/57
--- NOTE | 2021-11-30 09:36 | ED.ADGEN ---
Past Medical History Past Medical History: Other Additional Past Medical Histor: gestational diabetes, CERVICAL CYST, KIDNEY STONES Past Surgical History: Other Additional Past Surgical Histo: KIDNEY STONE REMOVAL WITH STENT PLACEMENT Smoking Status: Never Smoker Alcohol Use: None Drug Use: None General Adult EDM: Chief Complaint: FLU SYMPTOM HPI: HPI: Patient is a 26 year old female coming in for multiple complaints. Patient states that she has been vomiting since last night and is short of breath. She also complaining of body aches. Patient states she has had both of her COVID Pfizer vaccines about 6 months ago, but had a exposure to COVID at work. She has not had her influenza vaccine. Denies any history of asthma, lung problems, or smoking. Review of Systems: Review of Systems: All other systems within normal limits except for as noted in the HPI Current Medications: Current Medications Medications (Trade) Dose Ordered Sig/Kannan Start Time Stop Time Status Last Admin Dose Admin Ketorolac Tromethamine (Toradol 30mg Vial) 15 mg 1X ONCE 11/30/21 09:45 11/30/21 09:46 DC 11/30/21 10:05 15 MG Ondansetron HCl (Zofran) 4 mg 1X ONCE 11/30/21 09:45 11/30/21 09:46 DC 11/30/21 10:04 4 MG Sodium Chloride 500 ml @ 500 mls/hr 1X ONCE 11/30/21 09:45 11/30/21 10:44 11/30/21 10:04 500 MLS/HR Allergies: Allergies: Allergies Coded Allergies Type Severity Reaction Last Updated Verified No Known Drug Allergies 05/11/16 No Physical Exam: PE: Constitutional: Well developed, well nourished, no acute distress, non-toxic appearance. [] HENT: Normocephalic, atraumatic, bilateral external ears normal, nose normal. [] Eyes: PERRLA, conjunctiva normal, no discharge. [] Neck: No rigidity, supple, no stridor. [] Cardiovascular: Regular rate and rhythm, brisk cap refill [] Lungs & Thorax: Non labored symmetric respirations, no tachypnea or respiratory distress. Bilateral clear to auscultation [] Abdomen: Soft, nondistended, no tenderness. Skin: Warm, dry, no erythema, no rash. [] Back: Unremarkable Extremities: No deformities, range of motion grossly intact, no lower extremity edema [] Neurologic: Alert and oriented X 3, no focal deficits noted. [] Psychologic: Affect normal, judgement normal, mood normal. [] Current Patient Data: Labs: Laboratory Tests Test 11/30/21 09:20 11/30/21 09:27 11/30/21 09:43 Urine Collection Type Unknown Urine Color Yellow Urine Clarity Clear Urine pH 8.0 (<5.0-8.0) Urine Specific [place] 1.025 (1.000-1.030) Urine Protein Negative mg/dL (NEG-TRACE) Urine Glucose (UA) Negative mg/dL (NEG) Urine Ketones (Stick) 40 mg/dL (NEG) Urine Blood Negative (NEG) Urine Nitrite Negative (NEG) Urine Bilirubin Negative (NEG) Urine Urobilinogen Dipstick 1.0 mg/dL (0.2 mg/dL) Urine Leukocyte Esterase Negative (NEG) Urine RBC 0 /HPF (0-2) Urine WBC 0 /HPF (0-4) Urine Squamous Epithelial Cells Mod /LPF Urine Bacteria 0 /HPF (0-FEW) Urine Mucus Slight /LPF POC Urine HCG, Qualitative Hcg negative (Negative) White Blood Count 4.8 x10^3/uL (4.0-11.0) Red Blood Count 4.14 x10^6/uL (3.50-5.40) Hemoglobin 13.4 g/dL (12.0-15.5) Hematocrit 39.4 % (36.0-47.0) Mean Corpuscular Volume 95 fL (79-100) Mean Corpuscular Hemoglobin 32 pg (25-35) Mean Corpuscular Hemoglobin Concent 34 g/dL (31-37) Red Cell Distribution Width 13.2 % (11.5-14.5) Platelet Count 193 x10^3/uL (140-400) Neutrophils (%) (Auto) 91 % (31-73) H Lymphocytes (%) (Auto) 4 % (24-48) L Monocytes (%) (Auto) 5 % (0-9) Eosinophils (%) (Auto) 0 % (0-3) Basophils (%) (Auto) 0 % (0-3) Neutrophils # (Auto) 4.4 x10^3/uL (1.8-7.7) Lymphocytes # (Auto) 0.2 x10^3/uL (1.0-4.8) L Monocytes # (Auto) 0.2 x10^3/uL (0.0-1.1) Eosinophils # (Auto) 0.0 x10^3/uL (0.0-0.7) Basophils # (Auto) 0.0 x10^3/uL (0.0-0.2) Segmented Neutrophils % 83 % (35-66) H Band Neutrophils % 4 % (0-9) Lymphocytes % 11 % (24-48) L Monocytes % 2 % (0-10) Platelet Estimate Adequate (ADEQUATE) Sodium Level 136 mmol/L (136-145) Potassium Level 3.7 mmol/L (3.5-5.1) Chloride Level 102 mmol/L (98-107) Carbon Dioxide Level 23 mmol/L (21-32) Anion Gap 11 (6-14) Blood Urea Nitrogen 11 mg/dL (7-20) Creatinine 0.8 mg/dL (0.6-1.0) Estimated GFR (Cockcroft-Gault) 106.6 BUN/Creatinine Ratio 14 (6-20) Glucose Level 103 mg/dL (70-99) H Calcium Level 8.5 mg/dL (8.5-10.1) Total Bilirubin 1.0 mg/dL (0.2-1.0) Aspartate Amino Transferase (AST) 15 U/L (15-37) Alanine Aminotransferase (ALT) 28 U/L (14-59) Alkaline Phosphatase 42 U/L (46-116) L Total Protein 6.0 g/dL (6.4-8.2) L Albumin 3.0 g/dL (3.4-5.0) L Albumin/Globulin Ratio 1.0 (1.0-1.7) Lipase 85 U/L (73-393) Influenza Type A Antigen Negative (NEGATIVE) Influenza Type B Antigen Negative (NEGATIVE) SARS-CoV-2 Antigen (Rapid) Negative (NEGATIVE) Laboratory Tests 11/30/21 09:43 Laboratory Tests 11/30/21 09:43 Vital Signs: Vital Signs Date Time Temp Pulse Resp B/P (MAP) Pulse Ox O2 Delivery O2 Flow Rate FiO2 11/30/21 09:16 99.7 95 20 109/57 (74) 100 Room Air 99.7 EKG: EKG: [] Heart Score: C/O Chest Pain: No Risk Factors: Risk Factors: DM, Current or recent (<one month) smoker, HTN, HLP, family history of CAD, obesity. Risk Scores: Score 0 - 3: 2.5% MACE over next 6 weeks - Discharge Home Score 4 - 6: 20.3% MACE over next 6 weeks - Admit for Clinical Observation Score 7 - 10: 72.7% MACE over next 6 weeks - Early Invasive Strategies Radiology/Procedures: Radiology/Procedures: [facility] [address] [place] [address] IMAGING REPORT Signed PATIENT: TIA COTTO ACCOUNT: [id number] : 1995 LOCATION: ER AGE: 26 SEX: F EXAM STATUS: REG ER ORD. PHYSICIAN: CAMRYN PAREDES MD REASON: vomiting PROCEDURE: ACUTE ABDOMEN SERIES XR ABDOMEN COMP ACUTE INDICATION: vomiting COMPARISON: None. FINDINGS: No focal airspace disease. No pleural effusion or pneumothorax. Normal cardiomediastinal silhouette and great vessels. Nonobstructive bowel gas pattern. No free air. No acute osseous abnormality. IMPRESSION: Nonobstructive bowel gas pattern. No consolidation. Electronically signed by: Glenn Oconnell MD (11/30/2021 10:33 AM) [id number] DICTATED and SIGNED BY: GLENN OCONNELL MD DATE: 11/30/21 [id number] [] Course & Med Decision Making: Course & Med Decision Making Patient symptoms improved and tolerating p.o. well. Work-up unremarkable. Dragon Disclaimer: Dragstephanie Disclaimer: This electronic medical record was generated, in whole or in part, using a voice recognition dictation system. Departure Departure Impression: Primary Impression: Person under investigation for COVID-19 Additional Impression: Nausea & vomiting Disposition: HOME / SELF CARE / HOMELESS Condition: STABLE Referrals: NO PCP (PCP) Patient Instructions: Nausea and Vomiting Additional Instructions: You have been tested for or diagnosed with COVID-19. It is an infection caused by a new type of coronavirus. COVID-19 will cause cold-like or mild flu symptoms in most. It can cause more severe symptoms like problems breathing in some. There is no treatment for COVID-19. The body will clear the infection over time. Self-care will help to ease discomfort. Steps to Take: Self-Care Rest as needed. Healthy habits may help you feel better. Steps include: Choose healthy foods including fruits and vegetables. Drink water throughout the day. Get plenty of sleep each night. If you smoke, try to quit. It may ease breathing. Avoid alcohol. Keep Others Healthy The virus can spread to others. Droplets are released every time you sneeze or cough. The droplets can get into the mouth, nose, or eyes of people near you and lead to infection. To lower the chances of spreading COVID-19 to others: Stay at home until your doctor has said it is safe to leave. If you tested positive this will mean staying isolated until both of the following are true: At least 7 days have passed since the start of illness. You are free of fever for at least 72 hours without the use of medicine. During this time: - Avoid public areas, events, or transportation. Do not return to work or [facility] until your doctor has said it is safe to do so. - Call ahead if you need to go to a medical center. Let them know you may have COVID-19. It will help them guide you where to go. They may also ask you to wear a facemask when you come to the office. - If you call for emergency medical services, let them know you may have COVID- 19. While at home: - Try to avoid close contact with others. Stay about 6 feet away. - If possible, spend most of your time in a separate room from others. - Use a face mask if you will be in close contact with others such as sharing a room or vehicle. - Have someone wipe down common surfaces in the home. Use household walnut dehydrator operator every day on areas like doorknobs, counters, or sinks. - Cough or sneeze into a tissue. Throw the tissue away right after use. If a tissue is not available, cough or sneeze into your elbow. - Wash your hands often. Wash them after sneezing or coughing. Use soap and water and wash for at least 20 seconds. Alcohol based hand oil tank car cleaner can be used if soap and water is not available. - Do not prepare food for others. Avoid sharing personal items like forks, spoons, or toothbrushes. - Avoid close contact with pets while you are sick. There is no evidence of the virus passing to pets. This is a safety step until more is known about this virus. Isolation can be frustrating. Social interaction can help. Keep in touch with friends and family through phone and tech options. You can still interact with others in your home, just keep a safe distance of about 6 feet. Follow-up: Your doctors office will check in with you to see if there are any changes in your health. You may be asked to keep track of symptoms to share with them. They will also let you know when you are clear to be in public again. Problems to Look Out For: Contact your doctor if your recovery is not going as you expect. Get emergency care if you have problems such as: - Trouble breathing - Nonstop chest pain or pressure - Changes in awareness, confusion, or problems waking - Lips or face have bluish color - Worsening of symptoms If you think you have an emergency, call for emergency medical services right away. [facility] Ondansetron (ONDANSETRON ODT) 4 Mg Tab.rapdis 0.5 TAB PO PRN Q6-8HRS PRN for NAUSEA, #8 TAB Prov: CAMRYN PAREDES MD 11/30/21 Dicyclomine Hcl (DICYCLOMINE HCL) 10 Mg Capsule 1 CAP PO PRN Q6HRS PRN for ABDOMINAL PAIN, #20 CAP 3 Refills Prov: CAMRYN PAREDES MD 11/30/21 Problem Qualifiers CAMRYN PAREDES MD Nov 30, 2021 09:36
[2021-11-30] MEDS ORDERED: KETOROLAC 30 MG/ML VIAL. INJ ONE (09:45)
[2021-11-30] MEDS ORDERED: IV NORMAL SALINE 500ML BAG 500 ML IV ONE (09:45)
[2021-11-30] MEDS ORDERED: ONDANSETRON PF 4 MG/2 ML VIAL. IVP ONE (09:45)
[2021-11-30 09:48] LABS: BILIRUBIN,URINE NEGATIVE (NEG); CLARITY,URINE CLEAR; COLOR,URINE YELLOW; NITRITE,URINE NEGATIVE (NEG); PROTEIN,URINE NEGATIVE (NEG-TRACE)
[2021-11-30 09:58] LABS: BACTERIA,URINE 0 /HPF (0-FEW); RBC,URINE 0 /HPF (0-2); WBC,URINE 0 /HPF (0-4)
[2021-11-30 09:58] LABS: BASO % 0 % (0-3); EOS % 0 % (0-3); HEMATOCRIT 39.4 % (36.0-47.0); HEMOGLOBIN 13.4 g/dL (12.0-15.5); LYMPH # 0.2 x10^3/uL (1.0-4.8); LYMPH % 4 % (24-48); MEAN CORPUSCULAR HEMOGLOBIN 32 pg (25-35); MEAN CORPUSCULAR HGB CONC 34 g/dL (31-37); MEAN CORPUSCULAR VOLUME 95 fL (79-100); MONO # 0.2 x10^3/uL (0.0-1.1); MONO % 5 % (0-9); NEUT # 4.4 x10^3/uL (1.8-7.7); NEUT % 91 % (31-73); PLATELET COUNT 193 x10^3/uL (140-400); RED BLOOD COUNT 4.14 x10^6/uL (3.50-5.40); RED CELL DISTRIBUTION WIDTH 13.2 % (11.5-14.5); WHITE BLOOD COUNT 4.8 x10^3/uL (4.0-11.0)
[2021-11-30 10:17] LABS: INFLUENZA A PATIENT NEGATIVE (NEGATIVE); INFLUENZA B PATIENT NEGATIVE (NEGATIVE)
[2021-11-30 10:20] LABS: CALCIUM 8.5 mg/dL (8.5-10.1); CREATININE 0.8 mg/dL (0.6-1.0); GFR 106.6; POTASSIUM 3.7 mmol/L (3.5-5.1)
--- NOTE | 2021-11-30 10:35 | RAD ---
XR ABDOMEN COMP ACUTE INDICATION: vomiting COMPARISON: None. FINDINGS: No focal airspace disease. No pleural effusion or pneumothorax. Normal cardiomediastinal silhouette a nd great vessels. Nonobstructive bowel gas pattern. No free air. No acute osseous abnormality. IMPRESSION: Nonobstructive bowel gas pattern. No consolidation. Electronically signed by: Gal Tejeda MD (11/30/2021 10:33 AM) [id number]
[2021-11-30 10:40] LABS: % BANDS 4 % (0-9); % LYMPHS 11 % (24-48); % MONOS 2 % (0-10); % SEGS 83 % (35-66); PLT ESTIMATE ADEQUATE (ADEQUATE)
[2021-11-30] MEDS ORDERED: DICY10CA3 PO (10:46)
[2021-11-30] MEDS ORDERED: ONDA4TAB12 PO (10:46)
--- NOTE | 2021-11-30 16:28 | NUR ---
IP: Informed pt of negative covid test. Pt verbalized understanding.
== END 2021-11-30 12:46 | disposition home or self-care (01) ==
LOC: ER 08:34
DX: R11.2 Nausea with vomiting, unspecified (principal); Z20.822 Contact with and (suspected) exposure to COVID-19; R06.02 Shortness of breath; M79.10 Myalgia, unspecified site; Z95.5 Presence of coronary angioplasty implant and graft
CPT/HCPCS: 36415; 74022; 80053; 81001; 81025; 83690; 85007; 85025; 96361; 96374; 96375; 99284; J1885; J2405; J7040; U0003; U0005; 87428